=== PATIENT | female | born 1980 | race Caucasian/White ===

== ENCOUNTER → 2016-11-21 | Outpatient (CLI) | payer OTHER ==
[~2016-11-21] MED LIST: CETI10 PO; CYCL5TAB PO; CYTO200T PO; DEXT10CA6 PO; FEXO15TA PO; IBUP400T20 PO; KETO2AER3 TOP; METF-324 PO; METF-382 PO; MULT1TAB46 PO; OGESTAB PO; PRED10PA PO; PRENCAP10 PO; SERT-132 PO; VITA-13 PO; VITA400C70 PO; VITA500S3 PO; Z.0.BCPILL PO; [UNRECOGNIZED DRUG - CODE] EACH NARE; [UNRECOGNIZED DRUG - OTHER] PO; [UNRECOGNIZED DRUG - OTHER] PO
== END ==
LOC: CPRE 10:07
PROVIDERS: ATTEND Obstetrics & Gynecology
DX: D25.9 Leiomyoma of uterus, unspecified (principal)

== ENCOUNTER 2016-11-27 06:06 | Observation (INO) | payer OTHER ==
[~2016-11-27] VITALS: Ht 167.6 cm; Wt 116.5 kg
[~2016-11-27 06:06] MED LIST changes: -CETI10 PO; -CYTO200T PO; -IBUP400T20 PO; -KETO2AER3 TOP; -METF-324 PO; -PRENCAP10 PO; -VITA-13 PO; -VITA400C70 PO; -VITA500S3 PO; -Z.0.BCPILL PO; -[UNRECOGNIZED DRUG - CODE] EACH NARE; -[UNRECOGNIZED DRUG - OTHER] PO
[2016-11-27] MEDS ORDERED: POVIDONE IODINE 5% (ANTISEPSIS KIT) 4 APPLICATIONS EACH NARE PRN (06:45)
[2016-11-27] MEDS ORDERED: LACTATED RINGER'S 1000 ML IV PRN (06:45)
[2016-11-27] MEDS ORDERED: METOPROLOL TARTRATE 25 MG TAB PO PRN (06:45)
[2016-11-27] MEDS ORDERED: INSULIN HUMAN REGULAR 1,000 UNITS/10 ML VIAL SQ PRN (06:45)
[2016-11-27] MEDS ORDERED: SODIUM CHLORID 0.9% 500 ML IV PRN (06:45)
[2016-11-27] MEDS ORDERED: CHLORHEXIDINE GLUCONATE 2 % 1 PACK (2 CLOTHS) TOPICAL PRN (06:45)
[2016-11-27] MEDS ORDERED: ceFAZolin 2 GM PREMIX 50 ML IV SCH (06:45)
[2016-11-27] MEDS ORDERED: ACETAMINOPHEN 1000 MG/100 ML 100 ML IV ONE (07:10)
[2016-11-27] MEDS ORDERED: BUPIVACAINE/EPINEPHRINE 0.25% 50 ML VIAL ONE (07:29)
[2016-11-27] MEDS ORDERED: FUROSEMIDE 40 MG/4 ML VIAL ONE (07:29)
[2016-11-27] MEDS ORDERED: FAMOTIDINE 20 MG/2 ML VIAL ONE (07:32)
[2016-11-27] MEDS ORDERED: diphenhydrAMINE HCL 25 MG CAP PO PRN (10:15)
[2016-11-27] MEDS ORDERED: SODIUM CHLORIDE 0.9% FLUSH 10 ML FLUSH IV FLUSH PRN (10:15)
[2016-11-27] MEDS ORDERED: ONDANSETRON HCL 4 MG/2 ML VIAL IVP PRN (10:15)
[2016-11-27] MEDS ORDERED: *morphine SULFATE 8 MG/ML PERIprocedure ONLY ONE (10:38)
[2016-11-27] MEDS: LACTATED RINGER'S 1000 ML INJ 1,000 ML IV SCH (10:40)
[2016-11-27] MEDS: HYDROmorphone HCL PF 1 MG/ML VIAL IVP PRN ×3 (10:57→19:59)
--- NOTE | 2016-11-27 11:25 | MP ---
cc: MILAGROS BOLAÑOS DATE OF SURGERY 11/27/2016 PREOPERATIVE DIAGNOSIS Pelvic pain, dyspareunia, dysfunctional uterine bleeding. POSTOPERATIVE DIAGNOSIS Pelvic pain, dyspareunia, dysfunctional uterine bleeding. PROCEDURE Examination under anesthesia, laparoscopic-assisted supracervical hysterectomy, bilateral salpingectomy, cystoscopy. SURGEON Dr. Bolaños [employer] Francoise Treviño ANESTHESIA General endotracheal anesthesia. FLUIDS 1500 cc crystalloid ESTIMATED BLOOD LOSS 75 cc URINE OUTPUT 150 cc clear yellow at the end of the procedure. FINDINGS The uterus was approximately 10-12 weeks in size with a fundal fibroid. Fallopian tubes and ovaries appeared normal. The fundal fibroid was actually pushing the uterus toward the left side stretching the right sided uterosacral ligament. There is no endometriosis palpated in the rectovaginal septum. No endometriosis on the bowel. The appendix appeared normal. Liver edge appeared normal. PROCEDURE The patient was taken to the operating room where general anesthesia was found be adequate. She was then prepped and draped in the normal sterile fashion in the dorsolithotomy position. A Toledo catheter was inserted into the urinary bladder using sterile technique. A speculum was placed in the vagina. A single-tooth tenaculum applied to the anterior lip of the cervix. The suture was placed through the anterior lip of the cervix. The tenaculum was removed. A small V-Care uterine manipulator was then placed through the cervix. The balloon was inflated. The cuffs were positioned. The speculum was removed. Gloves were changed and attention was turned to the abdominal portion of the procedure. A 5-mm incision and trocar were inserted into the abdominal cavity under direct visualization just above the umbilicus. The abdomen was insufflated with approximately 3-1/2 liters of CO2 gas. A 5-mm trocar was placed in the right lower quadrant and a 10/12 mm trocar in the left lower quadrant. The findings were then noted as above. The round ligaments were transected bilaterally with the Harmonic scalpel. The bladder flap was created using the harmonic scalpel bilaterally. The bladder was then gently dissected off the anterior surface of the uterus and cervix. The left fallopian tube was then transected from the broad ligament using the harmonic scalpel. The left broad ligament and uterine arteries were transected with the Harmonic scalpel down to the level of the cervix. The right fallopian tube was transected from the broad ligament using the harmonic scalpel. The right broad ligament and uterine artery was transected with the Harmonic scalpel down to the level of the cervix. The uterus was then amputated from the cervix using the harmonic scalpel. Hemostasis was assured. The V-Care was removed. The uterus and fallopian tubes were then extracted and sent separately to pathology. Karyn was placed over the raw cervical stump for hemostasis. The pelvis was then suctioned and irrigated. The crossbow suture passer was used to close the fascia and peritoneum of the 10/12 mm incision in the left lower quadrant two sutures were placed. The gas was allowed to escape from the abdomen. The trocars and instruments were removed. The skin incisions were closed with 4-0 Monocryl. The Toledo catheter was used to instill approximately 250 cc of saline into the bladder. The Toledo catheter was removed. Cystoscopy was performed and urine was noted to be effluxing from both of the ureteral meatuses and no bladder injury was noted. The cystoscope was removed. The Toledo catheter was replaced. The suture was cut from the anterior lip of the cervix. The patient was awakened from anesthesia and transferred to recovery room in stable condition. Pathology was uterus and bilateral fallopian tubes. MD SAMI George/SARY /10:20 AM /11:07 AM
[2016-11-27 11:40] VITALS: BP 130/76; PULSE 67; RESP 18; TEMP 97.8
[2016-11-27] MEDS ORDERED: LIDOCAINE HCL 1% PF 5 ML AMPULE OTHER ONE (12:00)
[2016-11-27] MEDS ORDERED: LACTATED RINGER'S 1000 ML INJ 1,000 ML IV ONE (12:00)
[2016-11-27] MEDS ORDERED: ONDANSETRON HCL 4 MG/2 ML VIAL IV PUSH ONE (12:00)
[2016-11-27] MEDS ORDERED: MIDAZOLAM HCL 2 MG/2 ML VIAL IV ONE (12:00)
[2016-11-27] MEDS ORDERED: ROCURONIUM INJ 50 MG/5 ML SYRINGE IV PUSH ONE (12:00)
[2016-11-27] MEDS ORDERED: DEXAMETHASONE SOD PHOS 4 MG/ML VIAL IV ONE (12:00)
[2016-11-27] MEDS ORDERED: KETOROLAC TROMETHAMINE 30 MG/ML (IVP) VIAL IV PUSH ONE (12:00)
[2016-11-27] MEDS ORDERED: PROPOFOL 200 MG/20 ML AMP IV ONE (12:00)
[2016-11-27] MEDS ORDERED: DO NOT ADM ANY ANTICOAGULANT DRUGS PRN (12:30)
[2016-11-27] MEDS: KETOROLAC TROMETHAMINE 30 MG/ML (IVP) VIAL IVP PRN ×2 (13:06→19:59)
[2016-11-27 20:00] VITALS: BP 127/75; PULSE 85; RESP 20; TEMP 98.6; O2SAT 98
[2016-11-27] MEDS: DOCUSATE SODIUM 100 MG CAP PO SCH ×2 (20:06→22:15)
[2016-11-27] MEDS ORDERED: SODIUM CHLORIDE 0.9% FLUSH 10 ML FLUSH IV FLUSH SCH (21:00)
[2016-11-28] VITALS: BP 149/84; PULSE 73; RESP 20; TEMP 98.5; O2SAT 99
[2016-11-28] MEDS: KETOROLAC TROMETHAMINE 30 MG/ML (IVP) VIAL IVP PRN ×2 (02:08→08:01)
[2016-11-28] MEDS: HYDROmorphone HCL PF 1 MG/ML VIAL IVP PRN ×2 (02:08→08:01)
[2016-11-28] MEDS: LACTATED RINGER'S 1000 ML INJ 1,000 ML IV SCH (02:28)
[2016-11-28 04:08] VITALS: BP 156/74; PULSE 70; RESP 20; TEMP 98.4; O2SAT 98
[2016-11-28 06:07] LABS: AUTOMATED NEUTROPHIL # 12.6 TH/MM3 (1.8-7.7); BASOPHIL % 0.1 % (0.0-2.0); EOSINOPHIL % 0.3 % (0.0-4.0); HEMATOCRIT 37.3 % (35.0-46.0); HEMO FLAGS DIFF FINAL; LYMPH % 16.2 % (9.0-44.0); LYMPHOCYTE # 2.6 TH/MM3 (1.0-4.8); MEAN CELL VOLUME 87.2 FL (80.0-100.0); MEAN CORPUSCULAR HGB CONC 33.2 % (32.0-36.0); MONO % 5.6 % (0.0-8.0); NEUT % 77.8 % (16.0-70.0); PLATELET COUNT 304 TH/MM3 (150-450); RED BLOOD COUNT 4.27 MIL/MM3 (4.00-5.30); RED CELL DISTRIBUTION WIDTH 15.3 % (11.6-17.2); WHITE BLOOD COUNT 16.2 TH/MM3 (4.0-11.0)
[2016-11-28] MEDS ORDERED: IBUPROFEN 600 MG TAB PO PRN (07:00)
[2016-11-28] MEDS ORDERED: ACETAMINOPHEN/HYDROcodone 325 MG/5 MG TAB PO PRN (07:00)
--- NOTE | 2016-11-28 07:51 | HHI.PR ---
Subjective Remarks Doing well, pain is well controlled, eating well. Objective Vital Signs Vital Signs Date Time Temp Pulse Resp B/P (MAP) Pulse Ox O2 Delivery O2 Flow Rate FiO2 11/28/16 04:08 98.4 70 20 156/74 (101) 98 11/28/16 00:00 98.5 73 20 149/84 (105) 99 11/27/16 20:00 98.6 85 20 127/75 (92) 98 11/27/16 11:40 97.8 67 18 130/76 (94) 11/27/16 11:15 63 14 135/76 (95) 100 Nasal Cannula 2 11/27/16 11:00 64 14 132/72 (92) 100 Nasal Cannula 3 11/27/16 10:45 66 14 120/69 (86) 100 Nasal Cannula 3 11/27/16 10:27 98.5 63 14 129/71 (90) 100 Nasal Cannula 3 I/O 11/27/16 11/27/16 11/27/16 11/28/16 11/28/16 11/28/16 07:00 15:00 23:00 07:00 15:00 23:00 Intake Total 1500 ml 1051 ml 1960 ml Output Total 1075 ml 1150 ml 1000 ml Balance 425 ml -99 ml 960 ml Intake IV Total 1051 ml 1960 ml Other 1500 ml Output Urine Total 850 ml 1150 ml 1000 ml Estimated Blood Loss 75 ml Other 150 ml Result Diagram: 11/28/1613 11/28/16512 Objective Remarks Chest is clear, regular rate and rhythm. Abdomen is soft and non-distended. Incisions are clean and dry. Ext no CCE. A/P Assessment and Plan Post Op Day 1 s/p BELLE Doing well Home today and return to office in two weeks. Lyssa Kelly MD Nov 28, 2016 07:51
--- NOTE | 2016-11-28 07:52 | HHI.DCPOC ---
Discharge Care Plan Your Health Problems Are: Pelvic pain Report Symptoms to Your Doctor -Temperature above 100.5 degrees -Redness, of incision or excessive or foul smelling drainage -Unusual pain or calf pain -Increased vaginal bleeding -Painful or difficulty urinating -Feelings of extreme sadness or anxiety after 2 weeks Goals to Promote Your Health * To prevent worsening of your condition and complications * To maintain your health at the optimal level Directions to Meet Your Goals Take your medications as prescribed Follow your dietary instruction Follow activity as directed Ensure plenty of rest for recovery Drink fluids for hydration Keep your appointments as scheduled Take your immunizations and boosters as scheduled If your symptoms worsen call your PCP, if no PCP go to Urgent Care Center or Emergency Room Smoking is Dangerous to Your Health. Avoid second hand smoke Call the 24-hour crisis hotline for domestic abuse at Lyssa Klely MD Nov 28, 2016 07:52
[2016-11-28 08:00] VITALS: BP 153/90; PULSE 79; RESP 18; TEMP 98.3; O2SAT 98
[2016-11-28] MEDS ORDERED: HEPARIN SODIUM - SQ 10,000 UNITS/ML VIAL SQ SCH (09:00)
== END 2016-11-28 10:51 | disposition home or self-care (01) ==
LOC: HSDC 06:06 → HSDI 10:11 → H1EA 11:22
PROVIDERS: ADMIT Obstetrics & Gynecology; ATTEND Obstetrics & Gynecology
DX: N93.8 Other specified abnormal uterine and vaginal bleeding (principal); N94.10 Unspecified dyspareunia; D25.9 Leiomyoma of uterus, unspecified; N80.0 Endometriosis of uterus; N83.8 Other noninflammatory disorders of ovary, fallopian tube and broad ligament
CPT/HCPCS: 00840; 58542; 82565; 85025; 86850; 86900; 86901; 88307; G0378; J0131; J0690; J1100; J1170; J1885; J2250; J2270; J2405; J3010; J7120; J1940